=== PATIENT | female | born 1960 | race Caucasian/White ===

== ENCOUNTER 2019-05-02 22:22 | Emergency (ER) | payer SELFPAY ==
[~2019-05-02] VITALS: Ht 162.6 cm; Wt 90.7 kg
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
[2019-05-02] MEDS ORDERED: IBUPROFEN 400 MG TABLET ONE (22:49)
[2019-05-02] MEDS ORDERED: IBUPROFEN 400 MG TABLET PO ONE (23:00)
[2019-05-02 23:28] VITALS: BP 141/85
--- NOTE | 2019-05-02 23:50 | NUR ---
Patient discharged to home in stable condition. Written and verbal after care instructions given. Patient verbalizes understanding of instruction.
== END 2019-05-02 23:51 | disposition home or self-care (01) ==
LOC: ER 22:26
DX: S93.692A Other sprain of left foot, initial encounter (principal); R07.89 Other chest pain; Z88.5 Allergy status to narcotic agent; V49.59XA Passenger injured in collision with other motor vehicles in traffic accident, initial encounter; Y93.89 Activity, other specified; Y92.488 Other paved roadways as the place of occurrence of the external cause; Y99.8 Other external cause status
CPT/HCPCS: 71045-TC; 73630-TC